=== PATIENT | male | born 1970 | race Caucasian/White ===

== ENCOUNTER 2017-07-23 19:31 | Emergency (ER) | payer MEDICARE ==
[~2017-07-23] VITALS: Ht 160 cm; Wt 102.0 kg
[~2017-07-23 19:31] MED LIST: ALBU0.086 NEB; FENO50TA PO; IPRA0.02 NEB; LAMO25 PO; LEVA500T PO; LEVO.05 PO; LEXA10TA PO; NAPR500 PO; NEBUKIT4 NEB; NICO14T TD; NYST100010 SS; OLAN10 PO; PRED10 PO; RAMI10CA35 PO; VITA100T15 PO; Z.0.OXYGENDME NC
[2017-07-23 19:32] VITALS: BP 138/84; PULSE 88; RESP 16; TEMP 98.2; O2SAT 95
--- NOTE | 2017-07-23 22:27 | PD ---
HPI Chief Complaint: Edema Time Seen by Provider: 22:22 Travel History International Travel<30 days: No Contact w/Intl Traveler<30days: No Traveled to known affect area: No History of Present Illness HPI Patient comes in complaining of bilateral lower extremity edema 2 days. Patient denies any trauma, recent travel, or recent surgery. Patient reports that he is relatively sedentary. Patient reports he has had shortness breath and 10 months was diagnosed with COPD and has been taking medication for his for this. Denies any change in shortness of breath. Patient continues to smoke. Patient denies doing anything for the edema lower extremity. Denies chest pain with this, fevers, nausea, vomiting, abdominal pain, headaches, dyspnea on exertion, or numbness or tingling anywhere. Standing seems to make the edema worse. Patient denies anything making it better. PFSH Past Medical History Alzheimer's Disease: Yes (PT REPORTS BEGINING OF DEMENTIA PER PRIMARY MD) Arthritis: Yes (RA) Blood Disorders: No Bipolar Disorder: Yes Anxiety: Yes Depression: Yes Cancer: No Cardiovascular Problems: Yes (Per pt, HTN) Chemotherapy: No Congestive Heart Failure: No (RN has documented CHF pt not aware) Coronary Artery Disease: No Diabetes: No Diminished Hearing: No Endocrine: Yes Gastrointestinal Disorders: No Genitourinary: No Headaches: No Hepatitis: Yes (HEP C) Hypertension: Yes Immune Disorder: No Medical other: Yes (COPD) Musculoskeletal: No Neurologic: Yes Psychiatric: Yes Reproductive: No Respiratory: No Radiation Therapy: No Schizophrenia: Yes Seizures: No Thyroid Disease: Yes Tetanus Vaccination: > 5 Years Past Surgical History Surgical History: No Previous Surgery AICD: No Arteriovenous Shunt: No Insulin Pump: No Pacemaker: No Social History Alcohol Use: Yes (Five time per week) Tobacco Use: Yes Substance Use: No Allergies-Medications (Allergen,Severity, Reaction): Coded Allergies: No Known Allergies (Verified , 07/23/17) Reported Meds & Prescriptions Reported Meds & Active Scripts Active Review of Systems Except as stated in HPI: all other systems reviewed are Neg Physical Exam Narrative GENERAL: Well-developed, overly nourished, in no acute distress, and non-ill appearing. SKIN: Focused skin assessment warm and dry. HEAD: Atraumatic. Normocephalic. EYES: Pupils equal and round. EOMI. No scleral icterus. No injection or drainage. ENT: No nasal bleeding or discharge. Mucous membranes pink and moist. NECK: Trachea midline. Supple. No nuclear rigidity. CARDIOVASCULAR: Regular rate and rhythm. No murmur appreciated. RESPIRATORY: No accessory muscle use. No respiratory distress. Clear to auscultation. Breath sounds equal bilaterally. MUSCULOSKELETAL: No obvious deformities. No clubbing. No cyanosis. 2+ pitting edema bilateral lower extremities. Full range of motion. NEUROLOGICAL: Awake and alert. No obvious cranial nerve deficits. Motor grossly within normal limits. Normal speech. PSYCHIATRIC: Appropriate mood and affect; insight and judgment normal. Data Data Last Documented VS Vital Signs Date Time Temp Pulse Resp B/P (MAP) Pulse Ox O2 Delivery O2 Flow Rate FiO2 07/23/17 19:32 98.2 88 16 138/84 (102) 95 Room Air Orders Orders Basic Metabolic Panel (Bmp) (07/23/17 22:20) Complete Blood Count With Diff (07/23/17 22:20) Prothrombin Time / Inr (Pt) (07/23/17 22:20) Act Partial Throm Time (Ptt) (07/23/17 22:20) Iv Access Insert/Monitor (07/23/17 22:20) Ecg Monitoring (07/23/17 22:20) Oximetry (07/23/17 22:20) Sodium Chloride 0.9% Flush (Ns Flush) (07/23/17 22:30) Chest, Single Ap (07/23/17 22:20) Us Leg Venous Doppler Bilat (07/23/17 22:20) MDM Medical Decision Making Medical Screen Exam Complete: Yes Emergency Medical Condition: Yes Differential Diagnosis DVT, CHF, dependent edema, hyperammonemia, electrolyte abnormality, other Narrative Course Patient was seen and examined. Initial laboratory and radiological studies were ordered. Patient signed out to Dr. Howell at the end of my shift. Please see her documentation for final diagnosis and disposition. Pete Velasco Jul 23, 2017 22:27
[2017-07-23] MEDS ORDERED: SODIUM CHLORIDE 0.9% FLUSH 10 ML FLUSH IV FLUSH PRN (22:30)
[2017-07-23 22:41] LABS: BASOPHIL # 0.1 TH/MM3 (0-0.2); EOSINOPHIL # 0.4 TH/MM3 (0-0.4); EOSINOPHIL % 2.8 % (0.0-4.0); HEMATOCRIT 51.1 % (39.0-51.0); LYMPH % 25.7 % (9.0-44.0); LYMPHOCYTE # 3.4 TH/MM3 (1.0-4.8); MEAN CORPUSCULAR HEMOGLOBIN 29.8 PG (27.0-34.0); MEAN CORPUSCULAR HGB CONC 33.2 % (32.0-36.0); MONO % 9.3 % (0.0-8.0); NEUT % 61.2 % (16.0-70.0); PLATELET COUNT 278 TH/MM3 (150-450); RED BLOOD COUNT 5.68 MIL/MM3 (4.50-5.90); RED CELL DISTRIBUTION WIDTH 15.1 % (11.6-17.2); WHITE BLOOD COUNT 13.1 TH/MM3 (4.0-11.0)
[2017-07-23 22:46] LABS: HEMO FLAGS AUTO DIFF
[2017-07-23 23:00] LABS: BICARBONATE 33.1 MEQ/L (21.0-32.0); POTASSIUM 4.2 MEQ/L (3.5-5.1)
--- NOTE | 2017-07-23 23:10 | RADRPT ---
EXAM DATE/TIME: 07/23/2017 22:27 [facility] COMPARISON: No previous studies available for comparison. INDICATIONS : Bilateral leg swelling. MEDICAL HISTORY : Rheumatoid arthritis. Hepatitis C. Hypertension. Dementia. Hepatic encephalitis. Depression. Anxiety. COPD. Thyroid disease. SURGICAL HISTORY : None. ENCOUNTER: Initial ACUITY: 2 day PAIN SCORE: 1/10 LOCATION: Bilateral legs. TECHNIQUE: Venous ultrasound of the left and right leg was performed from the inguinal ligament to the proximal calf. Real-time, color Doppler and spectral tracing, compression and augmentation techniques were us ed. FINDINGS: RIGHT LEG: There is normal compressibility of the deep venous system from the inguinal region to the proximal ca lf. No echogenic clot is seen in the lumen of the common femoral, femoral, popliteal, and posterior tibial veins. There is a normal response of the venous system to proximal and distal augmentation an d respiration. LEFT LEG: There is normal compressibility of the deep venous system from the inguinal region to the proximal ca lf. No echogenic clot is seen in the lumen of the common femoral, femoral, popliteal, and posterior tibial veins. There is a normal response of the venous system to proximal and distal augmentation an d respiration. CONCLUSION: No DVT is identified within either lower extremity. Anil Gamble MD on July 23, 2017 at 23:08 Board Certified Radiologist. This report was verified electronically.
[2017-07-23 23:16] LABS: APTT (PATIENT) 32.4 SEC (24.3-30.1); PROTHROMBIN TIME - PATIENT 10.5 SEC (9.8-11.6)
[2017-07-23 23:17] VITALS: BP 123/60; PULSE 80; RESP 22; O2SAT 95
[2017-07-23 23:17] LABS: BANDS 3 % (0-6); BASOPHILS 1 % (0-2); EOSINOPHILS 5 % (0-4); METAMYELOCYTES 1 % (0-1); NEUTROPHIL # MANUAL DIFF 7.9 TH/MM3 (1.8-7.7); PLATELET ESTIMATE SMEAR NORMAL (NORMAL); PLATELET MORPHOLOGY NORMAL (NORMAL); POLYS (SEG NEUTROPHILS) 56 % (16-70); SCAN/DIFF FINAL DIFF MANUAL; WBC DIFF SAMPLE 100
--- NOTE | 2017-07-23 23:22 | RADRPT ---
EXAM DATE/TIME: 07/23/2017 22:22 [facility] COMPARISON: CHEST SINGLE AP, May 05, 2016, 9:27. INDICATIONS : Short of breath MEDICAL HISTORY : Chronic obstructive pulmonary disease. SURGICAL HISTORY : None. ENCOUNTER: Initial ACUITY: 7 - 11 months PAIN SCORE: 0/10 LOCATION: chest FINDINGS: A single view of the chest demonstrates the lungs to be symmetrically aerated without evidence of mas s, infiltrate or effusion. The cardiomediastinal contours are unremarkable. Osseous structures are intact. CONCLUSION: No acute disease. Sahil Davis MD on July 23, 2017 at 23:19 Board Certified Radiologist. This report was verified electronically.
[2017-07-23] MEDS ORDERED: LAMO25 PO (23:24)
[2017-07-23] MEDS ORDERED: FENO1TAB76 PO (23:24)
[2017-07-23] MEDS ORDERED: LEXA5TAB PO (23:24)
[2017-07-23] MEDS ORDERED: SYNT25TA PO (23:24)
[2017-07-23] MEDS ORDERED: OLAN5TAB PO (23:24)
[2017-07-23] MEDS ORDERED: RAMI1.252 PO (23:24)
--- NOTE | 2017-07-23 23:55 | PD ---
Physical Exam Narrative I, Dr. Howell, have reviewed the advance practice practitioner's documentation and am in agreement, met with the patient face to face, made the diagnosis, and the medical decision making was done by me. *My assessment and Findings: DVT vs. liver disease vs. kidney disease vs. CHF vs. dependent edema. 47yo M with HTN here with bilateral lower extremity edema since yesterday. Pt is well appearing and has chronic SOB but saturating at 95% on RA. Denies any chest pain. VS wnl. Labs reviewed, WBC 13.1. BMP unremarkable. CXR negative. US bilateral lower ext showed no DVT. Pt reevaluated at bedside and feels good. Has PMD Dr. Sauceda to follow up with as outpatient. Return precautions given. Data Data Last Documented VS Vital Signs Date Time Temp Pulse Resp B/P (MAP) Pulse Ox O2 Delivery O2 Flow Rate FiO2 07/23/17 23:17 80 22 123/60 (81) 95 07/23/17 19:32 98.2 Room Air Orders Orders Basic Metabolic Panel (Bmp) (07/23/17 22:20) Complete Blood Count With Diff (07/23/17 22:20) Prothrombin Time / Inr (Pt) (07/23/17 22:20) Act Partial Throm Time (Ptt) (07/23/17 22:20) Iv Access Insert/Monitor (07/23/17 22:20) Ecg Monitoring (07/23/17 22:20) Oximetry (07/23/17 22:20) Sodium Chloride 0.9% Flush (Ns Flush) (07/23/17 22:30) Chest, Single Ap (07/23/17 22:20) Us Leg Venous Doppler Bilat (07/23/17 22:20) Labs Laboratory Tests Test 07/23/17 22:27 White Blood Count 13.1 TH/MM3 Red Blood Count 5.68 MIL/MM3 Hemoglobin 16.9 GM/DL Hematocrit 51.1 % Mean Corpuscular Volume 90.0 FL Mean Corpuscular Hemoglobin 29.8 PG Mean Corpuscular Hemoglobin Concent 33.2 % Red Cell Distribution Width 15.1 % Platelet Count 278 TH/MM3 Mean Platelet Volume 9.1 FL Neutrophils (%) (Auto) 61.2 % Lymphocytes (%) (Auto) 25.7 % Monocytes (%) (Auto) 9.3 % Eosinophils (%) (Auto) 2.8 % Basophils (%) (Auto) 1.0 % Neutrophils # (Auto) 8.0 TH/MM3 Lymphocytes # (Auto) 3.4 TH/MM3 Monocytes # (Auto) 1.2 TH/MM3 Eosinophils # (Auto) 0.4 TH/MM3 Basophils # (Auto) 0.1 TH/MM3 CBC Comment AUTO DIFF Differential Total Cells Counted 100 Neutrophils % (Manual) 56 % Band Neutrophils % 3 % Lymphocytes % 28 % Monocytes % 6 % Eosinophils % 5 % Basophils % 1 % Neutrophils # (Manual) 7.9 TH/MM3 Metamyelocytes 1 % Differential Comment FINAL DIFF MANUAL Atypical Lymphocytes % Platelet Estimate NORMAL Platelet Morphology Comment NORMAL Red Cell Morphology Comment NORMAL Prothrombin Time 10.5 SEC Prothromb Time International Ratio 1.0 RATIO Activated Partial Thromboplast Time 32.4 SEC Blood Urea Nitrogen 12 MG/DL Creatinine 1.02 MG/DL Random Glucose 105 MG/DL Calcium Level 9.7 MG/DL Sodium Level 139 MEQ/L Potassium Level 4.2 MEQ/L Chloride Level 101 MEQ/L Carbon Dioxide Level 33.1 MEQ/L Anion Gap 5 MEQ/L Estimat Glomerular Filtration Rate 78 ML/MIN [facility] Supervised Visit with POPPY: Yes Diagnosis Primary Impression: Edema Qualified Codes: R60.9 - Edema, unspecified Patient Instructions: General Instructions Departure Forms: Tests/Procedures Additional Instruction: Please follow up with your PMD in 3-7 days. Return to the ED if symptoms worsen. Med/Other Pt SpecificInfo: No Change to Meds Disposition: 01 DISCHARGE HOME Condition: Stable Yolanda Howell DO Jul 23, 2017 23:55
[2017-07-24] VITALS: BP 127/79
== END 2017-07-24 00:08 | disposition home or self-care (01) ==
LOC: NEPE 19:31
DX: R60.0 Localized edema (principal); R06.02 Shortness of breath; I10 Essential (primary) hypertension; E07.9 Disorder of thyroid, unspecified; G30.9 Alzheimer's disease, unspecified; F02.80 Dementia in other diseases classified elsewhere, unspecified severity, without behavioral disturbance, psychotic disturbance, mood disturbance, and anxiety; Z72.0 Tobacco use; Z87.09 Personal history of other diseases of the respiratory system; Z87.39 Personal history of other diseases of the musculoskeletal system and connective tissue; Z86.59 Personal history of other mental and behavioral disorders; Z86.79 Personal history of other diseases of the circulatory system; Z86.19 Personal history of other infectious and parasitic diseases; Z86.69 Personal history of other diseases of the nervous system and sense organs
CPT/HCPCS: 71010; 80048; 85007; 85027; 85610; 85730; 93970; 99285